=== PATIENT | female | born 1960 | race Caucasian/White ===

== ENCOUNTER 2020-08-25 08:03 | Observation (INO) ==
[2020-08-25] MEDS ORDERED: SODIUM CHLORIDE 0.9% 1,000 ML IV STA (08:25)
[2020-08-25 08:50] LABS: PT Patient Result 10.3 SECS (9.8-11.9); Partial Thromboplastin Time 27.6 SECS (23.9-33.8)
[2020-08-25 08:59] LABS: Alanine Aminotransferase 23 U/L (13-56); Albumin 3.9 G/DL (3.4-5.0); Alkaline Phosphatase 104 U/L (45-117); Aspartate Amino Transferase 12 U/L (0-37); Bilirubin,Total < 0.39 MG/DL (0.2-1.0); Blood Urea Nitrogen 26 MG/DL (7-18); Carbon Dioxide 30 MMOL/L (21-32); Estimated Glom Filtration Rate 62 ML/MIN; Glucose 94 MG/DL (74-106); Osmolality,Calculated 277.8 MOS/KG (273-304); Potassium 4.1 MMOL/L (3.5-5.1); Sodium 137 MMOL/L (136-145); Total Protein 7.6 G/DL (6.4-8.3)
[2020-08-25 09:08] LABS: Basophils # 0.1 10*3/uL (0.0-0.2); Basophils % 0.9 % (0.0-0.8); Eosinophils # 0.2 10*3/uL (0.0-0.87); Eosinophils % 2.7 % (0.00-10.9); Hematocrit 45.1 VOL% (35.7-47.0); Immature Granulocytes % 0.4 %; Immature Granulocytes Absolute 0.04 #; Lymphocytes # 2.6 10*3/uL (1.4-4.0); Lymphocytes % 29.3 % (21.3-54.2); Mean Corpuscular HGB Conc 31.7 GM/DL (32-36); Mean Corpuscular Volume 98.5 FL (87-102); Mean Platelet Volume 9.1 FL (9.6-12.0); Monocytes % 13.4 % (1.7-12.7); Neutrophils % 53.3 % (38.7-73.9); Platelet Count 481 T/CUMM (130-400); Red Blood Count 4.58 MC/CUMM (3.8-5.5); Red Cell Distribution Width 12.7 % (9.3-17.3)
[2020-08-25 09:08] LABS: Bilirubin,Urine Negative (Negative); Blood, Urine Negative (Negative); Glucose,Urine (UA) Negative (Negative); Ketones,Urine Negative (Negative); Nitrite,Urine Negative (Negative); Protein,Urine Negative; Urine Appearance Slightly Hazy (Clear); Urine Color Yellow (Yellow); Urine Specific Gravity 1.023 (1.001-1.035); Urine Urobilinogen < 2.0 EU/DL (0.2-1.0)
[2020-08-25 09:10] LABS: Hemoglobin 14.3 GM/DL (12.0-16.0)
[2020-08-25 09:11] LABS: Bacteria,Urine Occasional /HPF (Few); Hyaline Casts,Urine 4 /LPF (0-3); Mucus,Urine Occasional /LPF (Occasional); RBC,Urine 12 /HPF (0-4); Squamous Epithelial Cell,Urine Occasional /HPF (0-10); WBC,Urine <1 /HPF (0-6)
[2020-08-25 09:16] LABS: Barbiturates Screen,Urine Negative (Negative); Benzodiazepines Screen,Urine Positive (Negative); Cannabinoid Screen,Urine Negative (Negative); Opiate Screen,Urine Negative (Negative); Phencyclidine Screen,Urine Negative (Negative)
[2020-08-25] MEDS ORDERED: GLUCAGON 1 MG VIAL IM PRN (12:10)
[2020-08-25] MEDS ORDERED: DEXTROSE 50% 25 GM/50 ML VIAL IV PRN (12:10)
[2020-08-25] MEDS ORDERED: ONDANSETRON 4 MG/2 ML VIAL IV PRN (12:10)
[2020-08-25] MEDS: DEXTROSE 5% NACL 0.9% 1,000 ML IV SCH (12:41)
[2020-08-25] MEDS: ENOXAPARIN 40 MG/0.4 ML SYRINGE SUBCUT SCH (12:41)
[2020-08-25 13:58] LABS: Calcium 8.1 MG/DL (8.5-10.1); Osmolality,Calculated 277.7 MOS/KG (273-304)
[2020-08-26] MEDS: DEXTROSE 5% NACL 0.9% 1,000 ML IV SCH ×2 (00:42→20:00)
[2020-08-26] MEDS: DOCUSATE SODIUM 100 MG CAPSULE PO SCH ×3 (00:43→20:41)
[2020-08-26] MEDS: NICOTINE 21 MG/24 HR PATCH TRANSDERM SCH (09:15)
[2020-08-26] MEDS: ACETAMINOPHEN 325 MG TABLET PO PRN (20:37)
[2020-08-26] MEDS: ENOXAPARIN 40 MG/0.4 ML SYRINGE SUBCUT SCH (20:40)
[2020-08-26] MEDS: BUDESONIDE/FORMOTEROL 160-4.5 INHALER 6 GM INH SCH (20:44)
[2020-08-27] MEDS: DEXTROSE 5% NACL 0.9% 1,000 ML IV SCH ×2 (06:56→06:57)
[2020-08-27] MEDS: ACETAMINOPHEN 325 MG TABLET PO PRN (07:05)
[2020-08-27] MEDS: NICOTINE 21 MG/24 HR PATCH TRANSDERM SCH (08:07)
[2020-08-27] MEDS: BUDESONIDE/FORMOTEROL 160-4.5 INHALER 6 GM INH SCH (08:07)
[2020-08-27] MEDS: DOCUSATE SODIUM 100 MG CAPSULE PO SCH (08:09)
[2020-08-27 11:44] VITALS: BP 150/64
== END 2020-08-27 13:02 | disposition home or self-care (01) ==
LOC: EDUNIT# → N.ED 08:03 → INTOOBSV 12:10 → N.EDINP 12:10 → N.5E 22:39
PROVIDERS: ADMIT Family Medicine; ATTEND Family Medicine